=== PATIENT | female | born 2000 | race Two or more races ===

== ENCOUNTER → 2025-06-27 | Outpatient (CLI) | payer BC, SELFPAY ==
[2025-06-27 17:24] LABS: BVAG Candida Negative (Negative); Bacterial Vaginosis Markers Negative (Negative); Candida glabrata Negative (Negative); Candida krusei PCR Negative (Negative); Trichomonas Negative (Negative)
== END | disposition home or self-care (01) ==
LOC: SLDO 13:57
PROVIDERS: Referring Provider Advanced Practice Midwife; Visit Provider Advanced Practice Midwife
DX: B37.31 Acute candidiasis of vulva and vagina (principal); N76.0 Acute vaginitis; A59.01 Trichomonal vulvovaginitis
CPT/HCPCS: 81514